=== PATIENT | male | born 1940 | race Caucasian/White ===

== ENCOUNTER 2021-10-05 10:13 | Inpatient (IN) | payer OTHER ==
[~2021-10-05] VITALS: Ht 172.7 cm; Wt 97.1 kg
[2021-10-05 10:39] VITALS: BP_SYST 144
[2021-10-05 11:41] LABS: BASOPHILS # (AUTO) 0.1 K/uL (0.0-0.2); BASOPHILS % (AUTO) 1.3 % (0.0-2.0); EOSINOPHILS # (AUTO) 0.6 K/uL (0.0-0.4); EOSINOPHILS % (AUTO) 11.3 % (0.0-4.0); HEMATOCRIT 25.9 % (36-54); HEMOGLOBIN 8.6 g/dL (14.0-18.0); LYMPHOCYTES # (AUTO) 1.2 K/uL (1.0-5.5); LYMPHOCYTES % (AUTO) 20.6 % (20.5-51.5); MEAN CORPUSCULAR HEMOGLOBIN 27 pg (27-31); MEAN CORPUSCULAR HGB CONC 33 % (32-36); MEAN CORPUSCULAR VOLUME 83 fL (79.0-98.0); MONOCYTES # (AUTO) 0.5 K/uL (0.0-1.0); MONOCYTES % (AUTO) 8.3 % (1.7-9.3); NEUTROPHILS # (AUTO) 3.3 K/uL (1.8-7.7); NEUTROPHILS % (AUTO) 58.5 % (40.0-70.0); PLATELET COUNT (AUTO) 316 K/uL (130-430); RED BLOOD CELL COUNT(AUTO) 3.12 MIL/uL (4.2-6.2); WHITE BLOOD COUNT (AUTO) 5.6 K/uL (4.8-10.8)
[2021-10-05 12:13] LABS: ANION GAP 4 (5-15); CALCIUM 8.3 mg/dL (8.4-11.0); CHLORIDE 102 mmol/L (98-107); CREATININE 0.61 mg/dL (0.55-1.30); GLUCOSE 137 mg/dL (70-99); POTASSIUM 3.7 mmol/L (3.5-5.1); SODIUM SERUM 138 mmol/L (136-145); UREA NITROGEN, BLOOD 13 mg/dL (8-21)
[2021-10-05 12:28] LABS: ALANINE AMINOTRANSFERASE 13 U/L (12-78); ALBUMIN 3.1 g/dL (3.4-4.8); ASPARTATE AMINOTRANSFERASE 18 U/L (10-37); TOTAL BILIRUBIN 0.7 mg/dL (0.0-1.0)
[2021-10-05 14:11] LABS: INR 0.9 (0.80-1.20); PROTHROMBIN TIME 9.9 SECS (9.5-12.5)
[2021-10-05] MEDS ORDERED: PANTOPRAZOLE SODIUM 40 MG/VIAL (PROTONIX) IVP ONE (15:00)
[2021-10-05] MEDS ORDERED: D5/0.45 NS 1,000 ML IV ONE (15:00)
[2021-10-05] MEDS ORDERED: TAMS-11 PO (17:11)
[2021-10-05] MEDS ORDERED: LIP80 PO (17:12)
[2021-10-05] MEDS ORDERED: AMIT50TA3 PO (17:16)
[2021-10-05] MEDS ORDERED: IRBE150T48 PO (17:16)
[2021-10-05] MEDS ORDERED: LEVO112C4 (17:19)
[2021-10-05] MEDS ORDERED: CARV6.2554 PO (17:19)
[2021-10-05] MEDS ORDERED: CLOP75TA32 PO (17:19)
[2021-10-05] MEDS ORDERED: METF-518 PO (17:19)
[2021-10-05] MEDS ORDERED: FINA5TAB3 PO (17:20)
[2021-10-05] MEDS ORDERED: ASPI-859 PO (17:20)
[2021-10-05 18:15] VITALS: BP_SYST 135
[2021-10-05] MEDS ORDERED: ACETAMINOPHEN 325 MG TABLET PO PRN (18:45)
[2021-10-05] MEDS ORDERED: HYDROcodone/ACETAMIN 5-325 MG TAB (NORCO/ VICODIN) PO PRN (18:45)
[2021-10-05] MEDS ORDERED: HYDROcodone/ACETAMIN 10-325 MG TAB PO PRN (18:45)
[2021-10-05] MEDS ORDERED: NALOXONE HCL 0.4 MG/ML AMP (NARCAN) IVP PRN ×2 (18:45)
[2021-10-05] MEDS ORDERED: ONDANSETRON HCL 4 MG/2 ML VIAL IVP PRN (18:45)
[2021-10-05] MEDS ORDERED: LORazepam 2 MG/ML VIAL IVP PRN (18:45)
[2021-10-05] MEDS ORDERED: INSULIN REGULAR, HUMAN 100 UNITS/ML, 10 ML VIAL (humuLIN R) SUBCUT PRN (18:45)
[2021-10-05 20:00] VITALS: BP_SYST 131
[2021-10-05] MEDS: TAMSULOSIN HCL 0.4 MG CAP PO SCH (22:39)
[2021-10-05] MEDS: CARVEDILOL 6.25 MG TABLET (COREG) PO SCH (22:45)
[2021-10-05] MEDS: ATORVASTATIN 20 MG TABLET PO SCH (22:45)
[2021-10-05] MEDS: AMITRIPTYLINE HCL 25 MG TABLET (ELAVIL) PO SCH (22:45)
[2021-10-05] MEDS: PANTOPRAZOLE SODIUM 40 MG/VIAL (PROTONIX) IVP SCH (22:50)
[2021-10-06 03:12] VITALS: BP_SYST 133
[2021-10-06 07:00] VITALS: BP_SYST 132
[2021-10-06] MEDS: LEVOTHYROXINE SODIUM 0.112 MG TABLET PO SCH (07:38)
[2021-10-06 08:00] VITALS: BP_SYST 132
[2021-10-06] MEDS: FINASTERIDE 5 MG TABLET (PROSCAR) PO SCH (08:11)
[2021-10-06] MEDS: CARVEDILOL 6.25 MG TABLET (COREG) PO SCH ×2 (08:12→22:41)
[2021-10-06] MEDS: PANTOPRAZOLE SODIUM 40 MG/VIAL (PROTONIX) IVP SCH ×2 (08:12→21:00)
[2021-10-06] MEDS: LOSARTAN POTASSIUM 50 MG TABLET (COZAAR) PO SCH (09:00)
[2021-10-06 10:17] LABS: ANION GAP 6 (5-15); CALCIUM 8.3 mg/dL (8.4-11.0); CHLORIDE 102 mmol/L (98-107); CREATININE 0.71 mg/dL (0.55-1.30); GLUCOSE 138 mg/dL (70-99); POTASSIUM 3.1 mmol/L (3.5-5.1); SODIUM SERUM 136 mmol/L (136-145); UREA NITROGEN, BLOOD 11 mg/dL (8-21)
[2021-10-06 12:52] VITALS: BP_SYST 130
[2021-10-06 13:42] LABS: TOTAL IRON BIND. CAPACITY 246 ug/dL (250-450)
[2021-10-06 14:35] LABS: BASOPHILS % (AUTO) 0.8 % (0.0-2.0); EOSINOPHILS # (AUTO) 0.5 K/uL (0.0-0.4); EOSINOPHILS % (AUTO) 12.1 % (0.0-4.0); HEMATOCRIT 22.7 % (36-54); HEMOGLOBIN 7.6 g/dL (14.0-18.0); LYMPHOCYTES # (AUTO) 1.1 K/uL (1.0-5.5); LYMPHOCYTES % (AUTO) 27.4 % (20.5-51.5); MEAN CORPUSCULAR HEMOGLOBIN 28 pg (27-31); MEAN CORPUSCULAR HGB CONC 33 % (32-36); MEAN CORPUSCULAR VOLUME 83 fL (79.0-98.0); MONOCYTES # (AUTO) 0.4 K/uL (0.0-1.0); NEUTROPHILS % (AUTO) 49.7 % (40.0-70.0); PLATELET COUNT (AUTO) 287 K/uL (130-430); RED BLOOD CELL COUNT(AUTO) 2.75 MIL/uL (4.2-6.2); RED CELL DISTRIBUTION WIDTH 15.8 % (9.0-15.0)
[2021-10-06 16:30] VITALS: BP_SYST 132
[2021-10-06] MEDS ORDERED: DIPHENHYDRAMINE HCL 12.5 MG/5 ML UDC NG ONE (16:45)
[2021-10-06] MEDS ORDERED: BISACODYL 5 MG TABLET.DR (DULCOLAX) PO ONE (16:45)
[2021-10-06] MEDS ORDERED: LORATADINE 10 MG TABLET PO ONE (16:45)
[2021-10-06] MEDS ORDERED: ACETAMINOPHEN 325 MG TABLET PO ONE (16:45)
[2021-10-06 20:00] VITALS: BP_SYST 126
[2021-10-06] MEDS: TAMSULOSIN HCL 0.4 MG CAP PO SCH (22:26)
[2021-10-06] MEDS: AMITRIPTYLINE HCL 25 MG TABLET (ELAVIL) PO SCH (22:27)
[2021-10-06] MEDS: ATORVASTATIN 20 MG TABLET PO SCH (22:27)
[2021-10-07] VITALS (7 sets, daily range): BP systolic 120–140
[2021-10-07] MEDS: LEVOTHYROXINE SODIUM 0.112 MG TABLET PO SCH (06:24)
[2021-10-07 07:06] LABS: FOLATE (FOLIC ACID) 5.4 ng/mL (>3.0)
[2021-10-07] MEDS ORDERED: MIDAZOLAM HCL 5 MG/5 ML VIAL ONE (07:50)
[2021-10-07] MEDS ORDERED: fentaNYL CITRATE/PF 100 MCG/2 ML AMP ONE (07:50)
[2021-10-07] MEDS ORDERED: SIMETHICONE 40 MG/0.6 ML ML ONE (07:50)
[2021-10-07] MEDS: PANTOPRAZOLE SODIUM 40 MG/VIAL (PROTONIX) IVP SCH ×2 (09:00→21:09)
[2021-10-07 09:22] LABS: PROTHROMBIN TIME 10.9 SECS (9.5-12.5)
[2021-10-07 09:25] LABS: ANION GAP 7 (5-15); CALCIUM 8.2 mg/dL (8.4-11.0); CHLORIDE 106 mmol/L (98-107); CREATININE 0.71 mg/dL (0.55-1.30); GLUCOSE 114 mg/dL (70-99); POTASSIUM 3.4 mmol/L (3.5-5.1); SODIUM SERUM 142 mmol/L (136-145); UREA NITROGEN, BLOOD 9 mg/dL (8-21)
[2021-10-07] MEDS: FINASTERIDE 5 MG TABLET (PROSCAR) PO SCH (11:22)
[2021-10-07] MEDS: LOSARTAN POTASSIUM 50 MG TABLET (COZAAR) PO SCH (11:22)
[2021-10-07] MEDS: CARVEDILOL 6.25 MG TABLET (COREG) PO SCH ×2 (11:23→21:11)
[2021-10-07] MEDS ORDERED: BISACODYL 5 MG TABLET.DR (DULCOLAX) PO ONE (12:00)
[2021-10-07] MEDS ORDERED: POTASSIUM CHLORIDE 20 MEQ TAB.PRT.SR PO ONE (12:00)
[2021-10-07 12:27] LABS: BASOPHILS # (AUTO) 0.1 K/uL (0.0-0.2); BASOPHILS % (AUTO) 1.4 % (0.0-2.0); EOSINOPHILS # (AUTO) 0.7 K/uL (0.0-0.4); EOSINOPHILS % (AUTO) 14.4 % (0.0-4.0); HEMATOCRIT 27.3 % (36-54); HEMOGLOBIN 9.1 g/dL (14.0-18.0); LYMPHOCYTES # (AUTO) 1.4 K/uL (1.0-5.5); LYMPHOCYTES % (AUTO) 27.6 % (20.5-51.5); MEAN CORPUSCULAR HEMOGLOBIN 28 pg (27-31); MEAN CORPUSCULAR HGB CONC 33 % (32-36); MEAN CORPUSCULAR VOLUME 84 fL (79.0-98.0); MONOCYTES # (AUTO) 0.5 K/uL (0.0-1.0); MONOCYTES % (AUTO) 9.4 % (1.7-9.3); NEUTROPHILS # (AUTO) 2.4 K/uL (1.8-7.7); NEUTROPHILS % (AUTO) 47.2 % (40.0-70.0); PLATELET COUNT (AUTO) 295 K/uL (130-430); RED BLOOD CELL COUNT(AUTO) 3.27 MIL/uL (4.2-6.2); RETICULOCYTE COUNT 1.8 % (0.5-1.5)
[2021-10-07] MEDS ORDERED: GOLYTELY / COLYTE SOLUTION 4 LITERS PO ONE (14:00)
[2021-10-07 17:35] LABS: BILIRUBIN,URINE NEGATIVE (NEGATIVE); BLOOD, URINE NEGATIVE (NEGATIVE); CLARITY/URINE CLEAR (CLEAR); COLOR,URINE YELLOW (YELLOW); GLUCOSE,URINE NEGATIVE (NEGATIVE); KETONES,URINE NEGATIVE (NEGATIVE); LEUKOCYTE ESTERASE ,URINE NEGATIVE (NEGATIVE); NITRITE, URINE NEGATIVE (NEGATIVE); PROTEIN URINE NEGATIVE (NEGATIVE); UROBILINOGEN,URINE 0.2 (0.2-1.0)
[2021-10-07] MEDS ORDERED: MAGNESIUM CITRATE 300 ML ORAL SOLUTION PO ONE (19:00)
[2021-10-07] MEDS: ATORVASTATIN 20 MG TABLET PO SCH (21:10)
[2021-10-07] MEDS: TAMSULOSIN HCL 0.4 MG CAP PO SCH (21:10)
[2021-10-07] MEDS: AMITRIPTYLINE HCL 25 MG TABLET (ELAVIL) PO SCH (21:10)
[2021-10-08 01:08] VITALS: BP_SYST 140
[2021-10-08] MEDS: LEVOTHYROXINE SODIUM 0.112 MG TABLET PO SCH (05:21)
[2021-10-08] MEDS ORDERED: MIDAZOLAM HCL 5 MG/5 ML VIAL ONE (07:16)
[2021-10-08] MEDS ORDERED: MEPERIDINE 100 MG INJ. 100 MG/ML VIAL ONE (07:16)
[2021-10-08 07:17] LABS: BASOPHILS # (AUTO) 0.1 K/uL (0.0-0.2); BASOPHILS % (AUTO) 1.1 % (0.0-2.0); EOSINOPHILS # (AUTO) 0.5 K/uL (0.0-0.4); EOSINOPHILS % (AUTO) 9.3 % (0.0-4.0); HEMATOCRIT 25.8 % (36-54); HEMOGLOBIN 8.6 g/dL (14.0-18.0); LYMPHOCYTES # (AUTO) 1.5 K/uL (1.0-5.5); LYMPHOCYTES % (AUTO) 27.8 % (20.5-51.5); MEAN CORPUSCULAR HEMOGLOBIN 28 pg (27-31); MEAN CORPUSCULAR HGB CONC 34 % (32-36); MEAN CORPUSCULAR VOLUME 84 fL (79.0-98.0); MONOCYTES # (AUTO) 0.5 K/uL (0.0-1.0); MONOCYTES % (AUTO) 9.5 % (1.7-9.3); NEUTROPHILS # (AUTO) 2.8 K/uL (1.8-7.7); NEUTROPHILS % (AUTO) 52.3 % (40.0-70.0); PLATELET COUNT (AUTO) 291 K/uL (130-430); RED BLOOD CELL COUNT(AUTO) 3.08 MIL/uL (4.2-6.2); RED CELL DISTRIBUTION WIDTH 16.2 % (9.0-15.0); WHITE BLOOD COUNT (AUTO) 5.4 K/uL (4.8-10.8)
[2021-10-08 07:51] LABS: PROTHROMBIN TIME 10.7 SECS (9.5-12.5)
[2021-10-08 08:00] VITALS: BP_SYST 151
[2021-10-08 08:20] LABS: ALANINE AMINOTRANSFERASE 14 U/L (12-78); ALBUMIN 2.8 g/dL (3.4-4.8); ANION GAP 8 (5-15); ASPARTATE AMINOTRANSFERASE 16 U/L (10-37); CALCIUM 8.2 mg/dL (8.4-11.0); CHLORIDE 108 mmol/L (98-107); CREATININE 0.74 mg/dL (0.55-1.30); GLUCOSE 125 mg/dL (70-99); POTASSIUM 3.3 mmol/L (3.5-5.1); SODIUM SERUM 142 mmol/L (136-145); TOTAL BILIRUBIN 0.7 mg/dL (0.0-1.0); UREA NITROGEN, BLOOD 9 mg/dL (8-21)
[2021-10-08] MEDS: CARVEDILOL 6.25 MG TABLET (COREG) PO SCH ×2 (09:00→21:40)
[2021-10-08] MEDS: LOSARTAN POTASSIUM 50 MG TABLET (COZAAR) PO SCH (09:00)
[2021-10-08] MEDS: FINASTERIDE 5 MG TABLET (PROSCAR) PO SCH (09:00)
[2021-10-08 10:15] VITALS: BP_SYST 135
[2021-10-08] MEDS: PANTOPRAZOLE SODIUM 40 MG/VIAL (PROTONIX) IVP SCH ×2 (10:42→21:40)
[2021-10-08 12:00] VITALS: BP_SYST 133
[2021-10-08] MEDS ORDERED: POTASSIUM CHLORIDE 40 MEQ in NS 250 ML IV ONE (12:00)
[2021-10-08 16:00] VITALS: BP_SYST 136
[2021-10-08] MEDS: AMITRIPTYLINE HCL 25 MG TABLET (ELAVIL) PO SCH (21:41)
[2021-10-08] MEDS: ATORVASTATIN 20 MG TABLET PO SCH (21:41)
[2021-10-08] MEDS: TAMSULOSIN HCL 0.4 MG CAP PO SCH (21:41)
[2021-10-08 21:51] LABS: ALANINE AMINOTRANSFERASE 13 U/L (12-78); ALBUMIN 2.7 g/dL (3.4-4.8); ANION GAP 4 (5-15); ASPARTATE AMINOTRANSFERASE 12 U/L (10-37); CALCIUM 8.1 mg/dL (8.4-11.0); CHLORIDE 107 mmol/L (98-107); CREATININE 0.78 mg/dL (0.55-1.30); GLUCOSE 182 mg/dL (70-99); POTASSIUM 3.4 mmol/L (3.5-5.1); SODIUM SERUM 140 mmol/L (136-145); TOTAL BILIRUBIN 0.6 mg/dL (0.0-1.0); UREA NITROGEN, BLOOD 8 mg/dL (8-21)
[2021-10-09] VITALS: BP_SYST 128
[2021-10-09 06:24] LABS: BASOPHILS # (AUTO) 0.1 K/uL (0.0-0.2); BASOPHILS % (AUTO) 0.9 % (0.0-2.0); EOSINOPHILS # (AUTO) 0.7 K/uL (0.0-0.4); EOSINOPHILS % (AUTO) 11.9 % (0.0-4.0); HEMATOCRIT 27.2 % (36-54); HEMOGLOBIN 9.1 g/dL (14.0-18.0); LYMPHOCYTES # (AUTO) 1.5 K/uL (1.0-5.5); LYMPHOCYTES % (AUTO) 26.7 % (20.5-51.5); MEAN CORPUSCULAR HEMOGLOBIN 28 pg (27-31); MEAN CORPUSCULAR HGB CONC 34 % (32-36); MEAN CORPUSCULAR VOLUME 83 fL (79.0-98.0); MONOCYTES # (AUTO) 0.6 K/uL (0.0-1.0); MONOCYTES % (AUTO) 10.7 % (1.7-9.3); NEUTROPHILS # (AUTO) 2.9 K/uL (1.8-7.7); NEUTROPHILS % (AUTO) 49.8 % (40.0-70.0); PLATELET COUNT (AUTO) 267 K/uL (130-430); RED BLOOD CELL COUNT(AUTO) 3.27 MIL/uL (4.2-6.2); RED CELL DISTRIBUTION WIDTH 16.2 % (9.0-15.0); WHITE BLOOD COUNT (AUTO) 5.8 K/uL (4.8-10.8)
[2021-10-09 06:59] LABS: ANION GAP 4 (5-15); CALCIUM 8.1 mg/dL (8.4-11.0); CHLORIDE 106 mmol/L (98-107); CREATININE 0.78 mg/dL (0.55-1.30); GLUCOSE 111 mg/dL (70-99); POTASSIUM 3.5 mmol/L (3.5-5.1); SODIUM SERUM 140 mmol/L (136-145); UREA NITROGEN, BLOOD 8 mg/dL (8-21)
[2021-10-09] MEDS: LEVOTHYROXINE SODIUM 0.112 MG TABLET PO SCH (07:41)
[2021-10-09 07:57] VITALS: BP_SYST 107
[2021-10-09] MEDS: FINASTERIDE 5 MG TABLET (PROSCAR) PO SCH (09:16)
[2021-10-09] MEDS: PANTOPRAZOLE SODIUM 40 MG/VIAL (PROTONIX) IVP SCH (09:16)
[2021-10-09] MEDS: LOSARTAN POTASSIUM 50 MG TABLET (COZAAR) PO SCH (09:17)
[2021-10-09] MEDS: CARVEDILOL 6.25 MG TABLET (COREG) PO SCH (09:17)
[2021-10-09] MEDS ORDERED: LORazepam 1 MG TABLET PO PRN (10:30)
[2021-10-09 12:05] VITALS: BP_SYST 126
[2021-10-09] MEDS ORDERED: ESOM40CA53 PO (12:07)
[2021-10-09 12:20] VITALS: BP_SYST 126
[2021-10-09] MEDS ORDERED: SOD FERRIC GLUC COMPLEX/SUC 125 MG in NS 100 ML IV SCH (17:00)
== END 2021-10-09 14:54 | disposition home health service (06) | DRG 378 ==
LOC: SED 10:13 → SMU 14:48
PROVIDERS: ADMIT Preventive Medicine Preventive Medicine/Occupational Environmental Medicine; ATTEND Preventive Medicine Preventive Medicine/Occupational Environmental Medicine
PROC: 30233N1 Transfusion of Nonautologous Red Blood Cells into Peripheral Vein, Percutaneous Approach (ICD-10-PCS; 2021-10-06)
PROC: 0DB68ZX Excision of Stomach, Via Natural or Artificial Opening Endoscopic, Diagnostic (ICD-10-PCS; 2021-10-07)
PROC: 0DB58ZX Excision of Esophagus, Via Natural or Artificial Opening Endoscopic, Diagnostic (ICD-10-PCS; 2021-10-07)
PROC: 0DB98ZX Excision of Duodenum, Via Natural or Artificial Opening Endoscopic, Diagnostic (ICD-10-PCS; principal; 2021-10-07 08:30)
PROC: 0DJD8ZZ Inspection of Lower Intestinal Tract, Via Natural or Artificial Opening Endoscopic (ICD-10-PCS; 2021-10-08)
DX: K26.4 Chronic or unspecified duodenal ulcer with hemorrhage (principal); E44.0 Moderate protein-calorie malnutrition; K29.71 Gastritis, unspecified, with bleeding; D64.9 Anemia, unspecified; K57.30 Diverticulosis of large intestine without perforation or abscess without bleeding; I10 Essential (primary) hypertension; E03.9 Hypothyroidism, unspecified; E83.51 Hypocalcemia; E88.09 Other disorders of plasma-protein metabolism, not elsewhere classified; Z20.822 Contact with and (suspected) exposure to COVID-19; K44.9 Diaphragmatic hernia without obstruction or gangrene; E11.65 Type 2 diabetes mellitus with hyperglycemia; E87.6 Hypokalemia; E78.5 Hyperlipidemia, unspecified; K64.8 Other hemorrhoids; K59.09 Other constipation; Z68.32 Body mass index [BMI] 32.0-32.9, adult; Z86.73 Personal history of transient ischemic attack (TIA), and cerebral infarction without residual deficits; K22.70 Barrett's esophagus without dysplasia
CPT/HCPCS: 36415; 36430; 80048; 80053; 81003; 82607; 82728; 82746; 82962; 83540; 83550; 85025; 85044; 85610-TC; 85730-TC; 86886; 86900; 86901; 86920; 87081; 88305; 88312; 88313; 96374; 99285; C9113; J1815; J2175; J2250; J2916; J3010; J3480; J7050; P9021